=== PATIENT | male | born 1970 | race Native Hawaiian/Other Pacific Islander ===

== ENCOUNTER 2022-08-24 09:25 | Outpatient (CLI) | payer OTHER | END 2022-08-24 20:11 | disposition home or self-care (01) | LOC: RESP 09:25 | PROVIDERS: ATTEND Nurse Practitioner Family | DX: R55 Syncope and collapse (principal) | CPT/HCPCS: 93225 ==

== ENCOUNTER 2022-09-01 07:50 | Outpatient (CLI) | payer OTHER | END 2022-09-01 19:05 | disposition home or self-care (01) | LOC: US 07:50 | PROVIDERS: ATTEND Nurse Practitioner Family | DX: R74.8 Abnormal levels of other serum enzymes (principal) ==